=== PATIENT | female | born 2000 | race Caucasian/White ===

== ENCOUNTER → 2020-04-23 12:32 | Outpatient (CLI) | payer OTHER, SELFPAY ==
[2020-04-24 12:21] LABS: Covid-19 Nasal PCR Sendout Lex NOT DETECTED
== END ==
PROVIDERS: PCP Family Medicine; Visit Provider Nurse Practitioner
DX: Z03.818 Encounter for observation for suspected exposure to other biological agents ruled out (principal)
CPT/HCPCS: U0004

== ENCOUNTER → 2020-11-06 15:13 | Outpatient (CLI) | payer OTHER, SELFPAY ==
[2020-11-08 10:34] LABS: Covid-19 Nasal PCR Sendout P&C NEGATIVE
== END ==
PROVIDERS: PCP Family Medicine; Visit Provider Nurse Practitioner Family
DX: Z20.822 Contact with and (suspected) exposure to COVID-19 (principal)
CPT/HCPCS: U0004

== ENCOUNTER → 2021-09-07 17:06 | Outpatient (CLI) | payer OTHER, SELFPAY | PROVIDERS: PCP Family Medicine; Visit Provider Nurse Practitioner | DX: Z20.822 Contact with and (suspected) exposure to COVID-19 (principal) | CPT/HCPCS: C9803; U0003; U0005 ==

== ENCOUNTER 2021-11-12 20:08 | Emergency (ER) | payer BC, SELFPAY ==
[2021-11-12 20:15] VITALS: BP 121/51; PULSE 85; RESP 21; TEMP 36.9; O2SAT 99; BMI 25.6
[2021-11-12 20:32] VITALS: BP 121/51; PULSE 85; RESP 21; TEMP 36.9; O2SAT 99
--- NOTE | 2021-11-12 20:33 | HMH.EDUTC ---
[facility] [place] Impression: URI (upper respiratory infection) Qualifiers: URI type: unspecified URI Qualified Code(s): J06.9 - Acute upper respiratory infection, unspecified Disposition: Home, Self-Care Condition on Discharge: Good Instructions: DI for Sinusitis, Sinusitis Additional Instructions: *Monitor Temp, Over the counter Motrin or Tylenol as directed/as needed Tylenol every 4 hours and Motrin every 6 hours (as long as your family doctor has told you that you can take it) for fever or pain. and straight to ER if unable to lower temp less than 101.0 after medication given *Warm salt water gargles may help to soothe the throat *Throat Lozenges *Warm fluids like tea with honey may help to soothe the throat *Sleep elevated *Humidifier/Vaporizer Your throat swab was sent for culture. Those results are typically sent to your primary care. Be sure to follow up in 2-3 days with your family doctor/primary care physician if no improvement so they can review those result and treat if necessary. If you don?t have a primary care doctor, I recommend you get one but in the mean time, you will have to return to a walk in clinic Follow up IMMEDIATELY for new or worsening symptoms or no Noticeable improvement over the next 48-72 hours. 911 for difficulty breathing or swallowing You were tested for today for COVID19 your test result should be back in the next 48-72 hours, you may check your results on the [facility] health portal If you are positive someone from the Hospital will be calling you Make sure to drink plenty of water and gatoraid and take vitamin C, D and zinc Prescriptions: predniSONE [Deltasone 10mg tablet] 10 mg PO BID 5 Days #10 tab Transmission Status: Pending to [facility] Azithromycin [Z-Raghav 250mg Tab] 250 mg PO DIRECTED #6 tab [facility]: [facility] Referrals: Theron Moran MD [Primary Care Provider] - As needed Forms: Work/School Release Time of Disposition: 20:45 Medical Decision Making - Mayur Inquiry Pt receiving controlled substance: No Mayur was queried for this patient: No Vital Signs: 11/12/21 20:15 11/12/21 20:32 Temperature 98.4 F 98.4 F Temperature Source Oral Pulse Rate 85 Pulse Rate [Right Brachial] 85 Respiratory Rate 21 21 Blood Pressure 121/51 L Blood Pressure [Right Arm] 121/51 L Blood Pressure Mean [Right Arm] 74 Blood Pressure Source [Right Arm] Automatic Cuff Blood Pressure Position [Right Arm] Sitting 02 Sat by Pulse Oximetry 99 Oxygen Delivery Method Room Air - Lab Data Lab results reviewed: Yes: I reviewed the patient's lab results. Orders (Tests/Meds): ORDERS Category Date Time Status Covid-19 Nasal PCR ([facility]) Routine Lab 11/12/21 20:29 [place] [facility] [place] - General Stated complaint: possible sinus infection or strep Time Seen by Provider: 11/12/21 20:33 Mode of Arrival: Ambulatory Source of Information: Patient Limitations: No Limitations Description of Symptoms (Recalled from Triage Doc. by RN): PATIENT C/O SORE THROAT, EAR ACHE, CONGESTION AND SINUS DRAINAGE X 3 DAYS HEENT Symptoms (Recalled from RN notes): Yes Resp Symptoms (Recalled from RN notes): No Skin Symptoms (Recalled from RN notes): No MS Symptoms (Recalled from RN notes): No Functional Status (Recalled from RN notes): WNL - History of Present Illness Provider Complaint: Patient state that she has been having pain in her left ear, sinus pain and pressure and sore throat that has continued to get worse over the last 3 days States that tonight she was feeling worse so she came in to get checked - Related Data Home Medications Medication Instructions Recorded Confirmed norgestimate-ethinyl estradioL 0.25 mg PO DAILY 04/05/18 11/12/21 [Sprintec 28 Day Tablet] Previous Rx's Medication Instructions Recorded Azithromycin [Z-Raghav 250mg Tab] 250 mg PO DIRECTED #6 tab 11/12/21 predniSONE [Deltasone 10mg tablet
[2021-11-12 20:39] LABS: UTC Strep Screen (Rapid) Negative (Negative)
[2021-11-12 20:42] LABS: UTC Pregnancy Test, Urine Negative (Negative)
== END 2021-11-12 20:54 | disposition home or self-care (01) ==
PROVIDERS: Emergency Provider Nurse Practitioner; PCP Family Medicine
DX: U07.1 COVID-19 (principal); J06.9 Acute upper respiratory infection, unspecified
CPT/HCPCS: 81025; 87880; 99203; C9803; G0463; U0003; U0005

== ENCOUNTER 2024-08-27 09:04 | Outpatient (CLI) | payer BC, SELFPAY ==
--- NOTE | 2024-08-27 09:10 | US_ITS ---
FINAL REPORT CLINICAL HISTORY: NAUSEA FINDINGS: Sonographic images of the right upper quadrant were obtained. The pancreas is unremarkable in appearance.The liver has an unremarkable appearance.The gallbladder appears normal without evidence of gallstones.There is no evidence of biliary ductal dilatation.The common duct measures 3 mm. Limited images of the right kidney are unremarkable. IMPRESSION: Unremarkable right upper quadrant ultrasound. Reviewed, Interpreted and Dictated by Jignesh George III, MD Transcribed by Lissett Chauhan Authenticated and [facility]
== END 2024-08-27 23:59 | disposition home or self-care (01) ==
LOC: RAD 09:05
PROVIDERS: PCP Nurse Practitioner; Visit Provider Nurse Practitioner
DX: R11.0 Nausea (principal)
CPT/HCPCS: 76705